=== PATIENT | male | born 1970 | race African-American/Black ===

== ENCOUNTER 2016-05-22 09:35 | Inpatient (IN) | payer OTHER ==
[2016-05-22 10:47] VITALS: BMI 22.8
--- NOTE | 2016-05-22 11:11 | HP ---
CIWA Score - CIWA Score Nausea/Vomitin Muscle Tremors: 3 Anxiety: 3 Agitation: 3 Paroxysmal Sweats: 2 Orientation: 0-Oriented Tacttile Disturbances: 2-Mild Itch/Numbness/Burn Auditory Disturbances: 2-Mild Harshness/Frighten Visual Disturbances: 2-Mild Sensitivity Headache: 2-Mild CIWA-Ar Total Score: 22 Admission ROS BHS - HPI Chief Complaint: i need help to stop drinking alcohol and cocaine Allergies/Adverse Reactions: Allergies Allergy/AdvReac Type Severity Reaction Status Date / Time Penicillins Allergy Severe Hives Verified 05/22/16 11:05 pioglitazone HCl [From Actos] Allergy Severe Hives Verified 05/22/16 11:05 tramadol Allergy Severe Hives Verified 05/22/16 11:05 History of Present Illness: this 45 years old male with alcohol and cocaine dependence,withdrawal symptom, last detox 2015 [facility], nicotine dependence syncope no significant period of sobriety low back pain Exam Limitations: No Limitations - Ebola screening Have you traveled outside of the country in the last 21 days: No Have you had contact with anyone from an Ebola affected area: No Have you been sick,other than usual withdrawal symptoms: No Do you have a fever: No - Review of Systems Constitutional: Loss of Appetite, Malaise, Night Sweats, Changes in sleep, Weakness, Unintentional Wgt. Loss EENT: reports: Nose Congestion Respiratory: reports: No Symptoms reported GI: reports: Nausea, Poor Appetite, Abdominal cramping : reports: No Symptoms Reported Musculoskeletal: reports: Back Pain Integumentary: reports: Dryness Neuro: reports: Headache, Tremors Endocrine: reports: No Symptoms Reported Hematology: reports: No Symptoms Reported Psychiatric: reports: No Sypmtoms Reported Patient History - Patient Medical History Hx Anemia: No Hx Asthma: No Hx Chronic Obstructive Pulmonary Disease (COPD): No Hx Cancer: No Hx Cardiac Disorders: No Hx Congestive Heart Failure: No Hx Hypertension: No Hx Hypercholesterolemia: No Hx Pacemaker: No HX Cerebrovascular Accident: No Hx Seizures: No Hx Dementia: No Hx Diabetes: No Hx Gastrointestinal Disorders: No Hx Liver Disease: No Hx Genitourinary Disorders: No Hx Sexually Transmitted Disorders: No Hx Renal Disease (ESRD): No Hx Thyroid Disease: No Hx Human Immunodeficiency Virus (HIV): Yes (last 2014 negative) Hx Hepatitis C: No Hx Depression: No Hx Suicide Attempt: No Hx Bipolar Disorder: No Hx Schizophrenia: No Other Medical History: insomnia - Patient Surgical History Past Surgical History: Yes Hx Orthopedic Surgery: Yes (s/p arthroscopic surgery of right knee in 10/24) - PPD History Previous Implant?: Yes Documented Results: Negative w/o proof Implanted On Prior [facility] Admission?: No PPD to be Administered?: Yes - Smoking Cessation Smoking history: Current every day smoker Have you smoked in the past 12 months: Yes Aproximately how many cigarettes per day: 10 Cigars Per Day: 0 Hx Chewing Tobacco Use: No Initiated information on smoking cessation: Yes 'Breaking Loose' booklet given: 05/22/16 - Substance & Tx. History Hx Alcohol Use: Yes Hx Substance Use: Yes Substance Use Type: Alcohol, Cocaine Hx Substance Use Treatment: Yes (2014 [facility]) - Substances Abused Alcohol Route: Oral Frequency: Daily Amount used: 10-12 MALT LIQUORS Age of first use: 18 Date of Last Use: 05/22/16 Cocaine Route: Inhalation Frequency: Daily Amount used: $60-80 Age of first use: 23 Date of Last Use: 05/21/16 Family Disease History - Family Disease History Family Disease History: Other: Father (alcohol,), Mother (alcohol) Admission Physical Exam BHS - Vital Signs Vital Signs: Vital Signs - 24 hr 05/22/16 10:45 Temperature 97.5 F L Pulse Rate 102 H Respiratory 18 Rate Blood Pressure 158/99 - Physical General Appearance: Yes: Moderate Distress, Tremorous, Irritable, Sweating, Anxious HEENTM: Yes: Rhinorrhea Respiratory: Yes: Lungs Clear Neck: Yes: Within Normal Limits Breast: Yes: Within Normal Limits Cardiology: Yes: Within Normal Limits, Regular Rhythm, Regular Rate, S1, S2 Abdominal: Yes: Normal Bowel Sounds, Non Tender, Flat, Soft Genitourinary: Yes: Within Normal Limits Back: Yes: Muscle Spasm Musculoskeletal: Yes: Back pain, Muscle Pain Extremities: Yes: Tremors Neurological: Yes: 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 II-XII NML intact, Fully Oriented, Alert, Motor Strength 5/5 Integumentary: Yes: Dry Lymphatic: Yes: Within Normal Limits - Diagnostic (1) Alcohol dependence with uncomplicated withdrawal Current Visit: Yes Status: Acute (2) Cocaine dependence Current Visit: Yes Status: Acute (3) Nicotine dependence Current Visit: Yes Status: Acute (4) Weight loss Current Visit: Yes Status: Acute (5) Low back pain Current Visit: Yes Status: Acute (6) S/P arthroscopic surgery of right knee Current Visit: Yes Status: Acute Cleared for Admission [facility] - Detox or Rehab [facility] Level of Care: Medically Managed Detox Regimen/Protocol: Librium [facility] Breath Alcohol Content Breath Alcohol Content: 0.031 Urine Drug Screen - Results Drug Screen Negative: No Urine Drug Screen Results: THC-Marijuana, DENISE-Cocaine
[2016-05-22] MEDS ORDERED: IBUPROFEN 400 MG TABLET (FP) PO PRN (11:23)
[2016-05-22] MEDS ORDERED: guaiFENesin/D-METHORPHAN HB 10 ML UNIT-DOSE CUPS PO PRN (11:23)
[2016-05-22] MEDS ORDERED: LOPERAMIDE HCL 2 MG CAPSULE PO PRN (11:23)
[2016-05-22] MEDS ORDERED: hydrOXYzine PAMOATE 50 MG CAPSULE (FP) PO PRN (11:23)
[2016-05-22] MEDS ORDERED: P-EPHED 60MG/TRIPROLIDI 2.5MG TABLET PO PRN (11:23)
[2016-05-22] MEDS ORDERED: ACETAMINOPHEN 325 MG TABLET (FP) PO PRN (11:23)
[2016-05-22] MEDS ORDERED: MAG HYDROX/AL HYDROX/SIMETH 30 ML UNIT-DOSE CUP PO PRN (11:23)
[2016-05-22] MEDS ORDERED: NICOTINE POLACRILEX 2 MG GUM BUC PRN (11:23)
[2016-05-22] MEDS ORDERED: MAGNESIUM HYDROX 2400MG/30ML ORAL SUSPENSION 30 ML CUP PO PRN (11:23)
[2016-05-22] MEDS ORDERED: MENTHOL/PHENOL 1 EACH UD MM PRN (11:23)
[2016-05-22] MEDS ORDERED: MAGNESIUM CITRATE 300 ML BOTTLE PO PRN (11:23)
[2016-05-22] MEDS ORDERED: chlordiazePOXIDE HCL 25 MG CAPSULE PO PRN (11:23)
[2016-05-22] MEDS ORDERED: chlordiazePOXIDE HCL 25 MG CAPSULE PO ONE (11:38)
[2016-05-22] MEDS: NICOTINE 21 MG/24 HOURS TOPICAL PATCH TD SCH (12:56)
[2016-05-22 14:23] LABS: HIV 1 & 2 AB NEGATIVE; HIV 1 AGp24 NEGATIVE
[2016-05-22 16:34] LABS: URINE APPEARANCE CLEAR; URINE BILIRUBIN NEGATIVE (NEGATIVE); URINE BLOOD NEGATIVE (NEGATIVE); URINE COLOR LT. YELLOW; URINE GLUCOSE (UA) NEGATIVE (NEGATIVE); URINE KETONE NEGATIVE (NEGATIVE); URINE LEUK ESTERASE NEGATIVE (NEGATIVE); URINE NITRITE NEGATIVE (NEGATIVE); URINE PROTEIN NEGATIVE (NEGATIVE); URINE UROBILINOGEN 0.2 E.U/dl E.U./dl (0.2-1.0)
[2016-05-22] MEDS: chlordiazePOXIDE HCL 25 MG CAPSULE PO SCH ×2 (17:42→23:00)
[2016-05-22] MEDS: diphenhydrAMINE HCL 50 MG CAPSULE PO PRN (23:00)
[2016-05-22] MEDS: THIAMINE HCL 100 MG TABLET (FP) PO SCH (23:00)
--- NOTE | 2016-05-22 23:58 | EKG ---
Test Reason : Blood Pressure : / mmHG Vent. Rate : 086 BPM Atrial Rate : 086 BPM P-R Int : 158 ms QRS Dur : 090 ms QT Int : 366 ms P-R-T Axes : 064 055 040 degrees QTc Int : 437 ms NORMAL SINUS RHYTHM SEPTAL INFARCT , AGE UNDETERMINED ABNORMAL ECG NO PREVIOUS ECGS AVAILABLE Confirmed by MONSTER RUTHERFORD, LORI ([id number]) on 05/22/2016 11:57:53 PM Referred By: Pelon Butler Confirmed By:LORI HOOK MD
[2016-05-23] MEDS: chlordiazePOXIDE HCL 25 MG CAPSULE PO SCH ×4 (06:00→22:42)
[2016-05-23 10:22] LABS: MCH 26.3 pg (25.7-33.7); MCHC 31.9 g/dl (32.0-35.9); MEAN CELL VOLUME 82.3 fl (80-96); MEAN PLT VOLUME 8.5 fl (7.5-11.1); PLATELET COUNT 357 K/MM3 (134-434); RDW 15.6 % (11.9-15.9); WHITE BLOOD COUNT 11.2 K/mm3 (4.0-10.0)
[2016-05-23 10:23] LABS: ALBUMIN 4.6 g/dl (3.4-5.0); ANION GAP 11 (8-16); CALCIUM 9.6 mg/dL (8.5-10.1); CO2 26 mmol/L (21-32); GLUCOSE,RANDOM 122 mg/dL (74-106)
[2016-05-23 10:27] LABS: ALK PHOS 90 U/L (45-117); BILIRUBIN,TOTAL 0.4 mg/dL (0.2-1.0); CREATININE 1.2 mg/dL (0.7-1.3); SGOT/AST 20 U/L (15-37); SGPT/ALT 35 U/L (12-78); TOT PROT 8.1 g/dl (6.4-8.2)
[2016-05-23] MEDS: NICOTINE 21 MG/24 HOURS TOPICAL PATCH TD SCH (10:55)
[2016-05-23] MEDS: PRENATAL VITAMINS W/ FOLIC ACID TABLET (FP) PO SCH (10:55)
--- NOTE | 2016-05-23 13:48 | PN ---
[facility] CIWA - CIWA Score Nausea/Vomitin-No Nausea/No Vomiting Muscle Tremors: 4-Moderate,w/Arms Extend Anxiety: 4-Mod. Anxious/Guarded Agitation: 4-Moderately Restless Paroxysmal Sweats: 1-Minimal Palms Moist Orientation: 0-Oriented Tacttile Disturbances: 3-Moderate Itch/Numb/Burn Auditory Disturbances: 0-None Visual Disturbances: 0-None Headache: 0-None Present CIWA-Ar Total Score: 16 S Progress Note (SOAP) Subjective: ANXIETY,SWEATS, INTERMITTENT SLEEP Objective: 05/23/16 13:48 Vital Signs Temperature 96.0 F L 05/23/16 10:38 Pulse Rate 94 H 05/23/16 10:38 Respiratory Rate 20 05/23/16 10:38 Blood Pressure 128/76 05/23/16 10:38 O2 Sat by Pulse Oximetry (%) Laboratory Last Values WBC 11.2 K/mm3 (4.0-10.0) H 05/23/16 06:00 RBC 5.28 M/mm3 (4.00-5.60) 05/23/16 06:00 Hgb 13.9 GM/dL (11.7-16.9) 05/23/16 06:00 Hct 43.4 % (35.4-49) 05/23/16 06:00 MCV 82.3 fl (80-96) 05/23/16 06:00 MCHC 31.9 g/dl (32.0-35.9) L 05/23/16 06:00 RDW 15.6 % (11.9-15.9) 05/23/16 06:00 Plt Count 357 K/MM3 (134-434) 05/23/16 06:00 MPV 8.5 fl (7.5-11.1) 05/23/16 06:00 Sodium 141 mmol/L (136-145) 05/23/16 06:00 Potassium 4.0 mmol/L (3.5-5.1) 05/23/16 06:00 Chloride 104 mmol/L (98-107) 05/23/16 06:00 Carbon Dioxide 26 mmol/L (21-32) 05/23/16 06:00 Anion Gap 11 (8-16) 05/23/16 06:00 BUN 13 mg/dL (7-18) 05/23/16 06:00 Creatinine 1.2 mg/dL (0.7-1.3) 05/23/16 06:00 Creat Clearance w eGFR > 60 (>60) 05/23/16 06:00 Random Glucose 122 mg/dL (74-106) H 05/23/16 06:00 Calcium 9.6 mg/dL (8.5-10.1) 05/23/16 06:00 Total Bilirubin 0.4 mg/dL (0.2-1.0) 05/23/16 06:00 AST 20 U/L (15-37) 05/23/16 06:00 ALT 35 U/L (12-78) 05/23/16 06:00 Alkaline Phosphatase 90 U/L (45-117) 05/23/16 06:00 Total Protein 8.1 g/dl (6.4-8.2) 05/23/16 06:00 Albumin 4.6 g/dl (3.4-5.0) 05/23/16 06:00 Urine Color Lt. yellow 05/22/16 14:00 Urine Appearance Clear 05/22/16 14:00 Urine pH 5.0 (5.0-8.0) 05/22/16 14:00 Ur Specific [place] >= 1.030 (1.001-1.035) 05/22/16 14:00 Urine Protein Negative (NEGATIVE) 05/22/16 14:00 Urine Glucose (UA) Negative (NEGATIVE) 05/22/16 14:00 Urine Ketones Negative (NEGATIVE) 05/22/16 14:00 Urine Blood Negative (NEGATIVE) 05/22/16 14:00 Urine Nitrite Negative (NEGATIVE) 05/22/16 14:00 Urine Bilirubin Negative (NEGATIVE) 05/22/16 14:00 Urine Urobilinogen 0.2 e.u/dl E.U./dl (0.2-1.0) 05/22/16 14:00 Ur Leukocyte Esterase Negative (NEGATIVE) 05/22/16 14:00 RPR Titer Nonreactive (NONREACTIVE) 05/23/16 06:00 HIV 1&2 Antibody Screen Negative 05/22/16 12:30 HIV P24 Antigen Negative 05/22/16 12:30 Assessment: 05/23/16 13:48 WITHDRAWAL SX Plan: COTINUE DETOX
[2016-05-23] MEDS: THIAMINE HCL 100 MG TABLET (FP) PO SCH (22:42)
[2016-05-23] MEDS: diphenhydrAMINE HCL 50 MG CAPSULE PO PRN (22:43)
[2016-05-24] MEDS: chlordiazePOXIDE HCL 25 MG CAPSULE PO SCH ×2 (05:30→10:42)
[2016-05-24] MEDS: PRENATAL VITAMINS W/ FOLIC ACID TABLET (FP) PO SCH (10:42)
[2016-05-24] MEDS: NICOTINE 21 MG/24 HOURS TOPICAL PATCH TD SCH (10:42)
--- NOTE | 2016-05-24 11:57 | PN ---
[facility] CIWA - CIWA Score Nausea/Vomitin-No Nausea/No Vomiting Muscle Tremors: 4-Moderate,w/Arms Extend Anxiety: 4-Mod. Anxious/Guarded Agitation: 4-Moderately Restless Paroxysmal Sweats: 1-Minimal Palms Moist Orientation: 0-Oriented Tacttile Disturbances: 3-Moderate Itch/Numb/Burn Auditory Disturbances: 0-None Visual Disturbances: 0-None Headache: 0-None Present CIWA-Ar Total Score: 16 S Progress Note (SOAP) Subjective: ANXIETY,TREMORS,SWEATS,INTERMITTENT SLEEP. Objective: 05/24/16 11:56 Vital Signs Temperature 95.3 F L 05/24/16 09:56 Pulse Rate 86 05/24/16 09:56 Respiratory Rate 18 05/24/16 09:56 Blood Pressure 155/99 05/24/16 09:56 O2 Sat by Pulse Oximetry (%) Laboratory Last Values WBC 11.2 K/mm3 (4.0-10.0) H 05/23/16 06:00 RBC 5.28 M/mm3 (4.00-5.60) 05/23/16 06:00 Hgb 13.9 GM/dL (11.7-16.9) 05/23/16 06:00 Hct 43.4 % (35.4-49) 05/23/16 06:00 MCV 82.3 fl (80-96) 05/23/16 06:00 MCHC 31.9 g/dl (32.0-35.9) L 05/23/16 06:00 RDW 15.6 % (11.9-15.9) 05/23/16 06:00 Plt Count 357 K/MM3 (134-434) 05/23/16 06:00 MPV 8.5 fl (7.5-11.1) 05/23/16 06:00 Sodium 141 mmol/L (136-145) 05/23/16 06:00 Potassium 4.0 mmol/L (3.5-5.1) 05/23/16 06:00 Chloride 104 mmol/L (98-107) 05/23/16 06:00 Carbon Dioxide 26 mmol/L (21-32) 05/23/16 06:00 Anion Gap 11 (8-16) 05/23/16 06:00 BUN 13 mg/dL (7-18) 05/23/16 06:00 Creatinine 1.2 mg/dL (0.7-1.3) 05/23/16 06:00 Creat Clearance w eGFR > 60 (>60) 05/23/16 06:00 Random Glucose 122 mg/dL (74-106) H 05/23/16 06:00 Calcium 9.6 mg/dL (8.5-10.1) 05/23/16 06:00 Total Bilirubin 0.4 mg/dL (0.2-1.0) 05/23/16 06:00 AST 20 U/L (15-37) 05/23/16 06:00 ALT 35 U/L (12-78) 05/23/16 06:00 Alkaline Phosphatase 90 U/L (45-117) 05/23/16 06:00 Total Protein 8.1 g/dl (6.4-8.2) 05/23/16 06:00 Albumin 4.6 g/dl (3.4-5.0) 05/23/16 06:00 Urine Color Lt. yellow 05/22/16 14:00 Urine Appearance Clear 05/22/16 14:00 Urine pH 5.0 (5.0-8.0) 05/22/16 14:00 Ur Specific [place] >= 1.030 (1.001-1.035) 05/22/16 14:00 Urine Protein Negative (NEGATIVE) 05/22/16 14:00 Urine Glucose (UA) Negative (NEGATIVE) 05/22/16 14:00 Urine Ketones Negative (NEGATIVE) 05/22/16 14:00 Urine Blood Negative (NEGATIVE) 05/22/16 14:00 Urine Nitrite Negative (NEGATIVE) 05/22/16 14:00 Urine Bilirubin Negative (NEGATIVE) 05/22/16 14:00 Urine Urobilinogen 0.2 e.u/dl E.U./dl (0.2-1.0) 05/22/16 14:00 Ur Leukocyte Esterase Negative (NEGATIVE) 05/22/16 14:00 RPR Titer Nonreactive (NONREACTIVE) 05/23/16 06:00 HIV 1&2 Antibody Screen Negative 05/22/16 12:30 HIV P24 Antigen Negative 05/22/16 12:30 Assessment: 05/24/16 11:56 WITHDRAWAL SX Plan: CONTINUE DETOX
[2016-05-24] MEDS: chlordiazePOXIDE 5 MG CAPSULE PO SCH ×2 (17:16→22:46)
[2016-05-24] MEDS: THIAMINE HCL 100 MG TABLET (FP) PO SCH (22:46)
[2016-05-24] MEDS: diphenhydrAMINE HCL 50 MG CAPSULE PO PRN (22:46)
[2016-05-25] MEDS: chlordiazePOXIDE 5 MG CAPSULE PO SCH ×2 (06:09→10:40)
[2016-05-25] MEDS: PRENATAL VITAMINS W/ FOLIC ACID TABLET (FP) PO SCH (10:40)
[2016-05-25] MEDS: NICOTINE 21 MG/24 HOURS TOPICAL PATCH TD SCH (10:41)
[2016-05-25 14:49] VITALS: BP 120/92; PULSE 77; TEMP 97.8
[2016-05-25] MEDS ORDERED: chlordiazePOXIDE HCL 10 MG CAPSULE PO SCH (17:00)
--- NOTE | 2016-05-28 12:14 | DS ---
[facility] Detox Discharge Summary Admission Date: 05/22/16 Discharge Date: 05/25/16 - History Present History: Alcohol Dependence, Cocaine Dependence Pertinent Past History: S/P ARTHROSCOPIC SURGERY RT. KNEE - Physical Exam Results Vital Signs: Vital Signs Temperature 97.8 F 05/25/16 14:43 Pulse Rate 77 05/25/16 14:43 Respiratory Rate 18 05/25/16 14:43 Blood Pressure 120/92 05/25/16 14:43 O2 Sat by Pulse Oximetry (%) Pertinent Admission Physical Exam Findings: WITHDRAWAL SX. Laboratory Tests 05/22/16 05/22/16 05/23/16 12:30 14:00 06:00 WBC 11.2 H RBC 5.28 Hgb 13.9 Hct 43.4 MCV 82.3 MCHC 31.9 L RDW 15.6 Plt Count 357 MPV 8.5 Sodium Potassium Chloride Carbon Dioxide Anion Gap BUN Creatinine Creat Clearance w eGFR Random Glucose Calcium Total Bilirubin AST ALT Alkaline Phosphatase Total Protein Albumin Urine Color Lt. yellow Urine Appearance Clear Urine pH 5.0 Ur Specific [place] >= 1.030 Urine Protein Negative Urine Glucose (UA) Negative Urine Ketones Negative Urine Blood Negative Urine Nitrite Negative Urine Bilirubin Negative Urine Urobilinogen 0.2 e.u/dl Ur Leukocyte Esterase Negative RPR Titer HIV 1&2 Antibody Screen Negative HIV P24 Antigen Negative 05/23/16 05/23/16 06:00 06:00 WBC RBC Hgb Hct MCV MCHC RDW Plt Count MPV Sodium 141 Potassium 4.0 Chloride 104 Carbon Dioxide 26 Anion Gap 11 BUN 13 Creatinine 1.2 Creat Clearance w eGFR > 60 Random Glucose 122 H Calcium 9.6 Total Bilirubin 0.4 AST 20 ALT 35 Alkaline Phosphatase 90 Total Protein 8.1 Albumin 4.6 Urine Color Urine Appearance Urine pH Ur Specific [place] Urine Protein Urine Glucose (UA) Urine Ketones Urine Blood Urine Nitrite Urine Bilirubin Urine Urobilinogen Ur Leukocyte Esterase RPR Titer Nonreactive HIV 1&2 Antibody Screen HIV P24 Antigen LABS NOTED - Medication Discharge Medications: Ambulatory Orders NK [No Known Home Medication] 05/22/16 - Diagnosis (1) Alcohol dependence with uncomplicated withdrawal Status: Acute (2) Cocaine dependence Status: Acute Qualifiers: Substance use status: uncomplicated Qualified Code(s): F14.20 - Cocaine dependence, uncomplicated (3) Low back pain Status: Acute (4) Nicotine dependence Status: Acute Qualifiers: Nicotine product type: cigarettes Substance use status: uncomplicated Qualified Code(s): F17.210 - Nicotine dependence, cigarettes, uncomplicated (5) S/P arthroscopic surgery of right knee Status: Acute - AMA Did Patient Leave Against Medical Advice: Yes
== END 2016-05-25 15:10 | disposition left against medical advice (07) | DRG 770 ==
LOC: YASAS 09:35 → Y3N 11:21
PROVIDERS: ADMIT Internal Medicine; ATTEND Internal Medicine
PROC: HZ2ZZZZ Detoxification Services for Substance Abuse Treatment (ICD-10-PCS; principal; 2016-05-22)
DX: F10.230 Alcohol dependence with withdrawal, uncomplicated (principal); F14.20 Cocaine dependence, uncomplicated; F17.210 Nicotine dependence, cigarettes, uncomplicated; M54.5 Low back pain; Z87.898 Personal history of other specified conditions
CPT/HCPCS: 36415; 80053; 81003; 85027; 86593; 87389; 93005; 93010